=== PATIENT | male | born 1985 | race Caucasian/White ===

== ENCOUNTER 2018-05-26 10:43 | Emergency (ER) | payer BC, OTHER ==
[~2018-05-26] VITALS: Ht 170.2 cm; Wt 67.3 kg
[2018-05-26] MEDS ORDERED: ketorolac tromethamine 15mg/ml inj. IM ONE (12:00)
[2018-05-26] MEDS ORDERED: TETanus/Pertussis (Acell)/Diphther VAC/PF (Tdap-Adult) 0.5ml syringe IM ONE (12:00)
[2018-05-26] MEDS ORDERED: LIDOcaine 1.5% w/epinephrine 1:200,000 5ml ampul IJ ONE (12:00)
[2018-05-26] MEDS ORDERED: orphenadrine citrate 60mg/2ml inj. IM ONE (12:00)
[2018-05-26 12:04] VITALS: BP 120/71
[2018-05-26] MEDS ORDERED: LIDOcaine 1% w/epiNEPHrine 1:200,000 30ml vial IJ ONE (12:15)
[2018-05-26] MEDS ORDERED: METH-360 PO (12:50)
[2018-05-26] MEDS ORDERED: IBUP-1985 PO (12:50)
== END 2018-05-26 13:12 | disposition home or self-care (01) ==
LOC: ER 10:45
DX: S06.0X1A Concussion with loss of consciousness of 30 minutes or less, initial encounter (principal); S01.01XA Laceration without foreign body of scalp, initial encounter; Z79.899 Other long term (current) drug therapy; W20.8XXA Other cause of strike by thrown, projected or falling object, initial encounter; Y93.31 Activity, mountain climbing, rock climbing and wall climbing; Y92.89 Other specified places as the place of occurrence of the external cause; Y99.8 Other external cause status
CPT/HCPCS: 12001; 70450; 71045; 72125; 73010; 96372; 99284; J1885; J2360; J3490